=== PATIENT | female | born 1955 | race Caucasian/White ===

== ENCOUNTER 2024-11-18 08:47 | Outpatient (AMB) | payer MEDICARE, OTHER, SELFPAY ==
--- OUTSIDE RECORDS SUMMARY | 2024-11-18 08:59 | XMS_ITS | Clinical Summary ---
Author Organization [facility] ity Address [address] [place] [address] Care Team Providers Care Special Forces Specialist Name Role Phone Salma Becker MD Primary Care Provider [phone] Surgical History Surgery Date Site/Laterality Comments HAND SURGERY PROCEDURE:HAND SURGERY SHOULDER SURGERY PROCEDURE:SHOULDER SURGERY JOINT REPLACEMENT PROCEDURE:JOINT REPLACEMENT Medical History Medical History Date Comments Hypertension DX:Hypertension Hypertension DX:Hypertension Family History Medical History Relation Name Comments Diabetes Father Heart disease Father Relation Name Status Comments Father Social History Tobacco Use Types Packs/Day Years Used Date Smoking Tobacco: Never Smokeless Tobacco: Never Alcohol Use Standard Drinks/Week Comments Yes 2 (1 standard drink = 0.6 oz pur e alcohol) Sex and Gender Information Value Date Recorded Sex Assigned at Female 06/25/2023 11:01 AM EDT Gender Identity Female 06/25/2023 11:01 AM EDT Sexual Orientation Not on file Obstetrics History Plan of Treatment Health Maintenance Due Date Last Done Comments Breast Cancer Screening 1956 DTaP,Tdap,and Td Vaccines (1 - Tdap) 1975 Zoster Vaccines (1 of 2) 2006 Pneumococcal Vaccine: 65+ Ye ars (1 of 1 - PCV) 2021 Colorectal Cancer Screening: Colonoscopy 09/23/2022 Depression Screening 09/23/2022 Falls Risk Assessment 09/23/2022 Hepatitis C Screening 09/23/2022 Osteoporosis Screening (Bone Density Screening) 09/23/2022 Social Influencers of Health Screening 09/23/2022 COVID-19 Vaccine ( - 2023-2 5 season) 2024 Influenza Vaccine (#1) 2024 RSV Immunization Patients 60 + Years Old (1 - 1-dose 75+ series) 2031 HIB Vaccines Aged Out No longer eligi ble based on patient's age to complete this topic HPV Vaccines Aged Out No longer eligi ble based on patient's age to complete this topic Hepatitis A Vaccines Aged Out No long er eligible based on patient's age to complete this topic Hepatitis B Vaccines Aged Out No long er eligible based on patient's age to complete this topic IPV Vaccines Aged Out No longer eligi ble based on patient's age to complete this topic MMR Vaccines Aged Out No longer eligi ble based on patient's age to complete this topic Meningococcal ACWY Vaccine Aged Out N o longer eligible based on patient's age to complete this topic RSV Immunization Patients Un lanie 20 months Aged Out No longer eligible b ased on patient's age to complete this topic Varicella Vaccines Aged Out No longer eligible based on patient's age to complete this topic Care Teams Special Forces Specialist Relationship Specialty Start Date End Date Salma Becker MD [address] [place] [address] PCP - General 04/30/18
--- OUTSIDE RECORDS SUMMARY | 2024-11-18 08:59 | XMS_ITS | Continuity of Care Document ---
Author Name [facility] Organization [facility] Care Team Providers Care Enterer Name Role Phone [facility] Unavailable Unavailable Medications Combined list of outpatient medications from Department of Defense and Veterans Affairs facilities.Medications provided include 1) outpatient medications from the last 15 months, and 2) patient-reported medications. Medication Details Route Status Patient Instructions Prescription Expires Prescription Number Last Dispense Date Ordering Provider Order Date Order Qty Source Benzonatate ([employer]) 100 CAPSULE in 1 BOTTLE Active [id number] 10/18/19 2 4 2023 21 Pharmac y Data Transac tion Service Facilit y BUPROPION HCL (BUPROPION HCL), 100MG, TABLET, ORAL, APOTEX SCARLETT, 100 ea. BOTTLE Active [id number] 4 2023 90 Pharmac y Data Transac tion Service Facilit y BUPROPION HCL (BUPROPION HCL), 100MG, TABLET, ORAL, APOTEX SCARLETT, 100 ea. BOTTLE Active [id number] 4 2023 30 Pharmac y Data Transac tion Service Facilit y BUPROPION HCL (BUPROPION HCL), 100MG, TABLET, ORAL, APOTEX SCARLETT, 100 ea. BOTTLE Active [id number] 4 2023 30 Pharmac y Data Transac tion Service Facilit y BUPROPION HCL (BUPROPION HCL), 100MG, TABLET, ORAL, APOTEX SCARLETT, 100 ea. BOTTLE Active [id number] 4 2023 30 Pharmac y Data Transac tion Service Facilit y BUPROPION HCL (BUPROPION HCL), 100MG, TABLET, ORAL, APOTEX SCARLETT, 100 ea. BOTTLE Active [id number] 4 2023 30 Pharmac y Data Transac tion Service Facilit y Immunizations Combined list of available immunizations from the Department of Defense and Veterans Affairs facilities. Immunization Series Date Given Administered By Site Reaction Lot Number CVX Code Drug Transition Program Manager Status Comments Source COVID-19, mRNA, LNP-S, PF, 30 mcg/0.3 mL dose 2020 [employer] [place] (PFR) Not Given COVID-19, mRNA, LNP-S, PF, 30 mcg/0.3 mL dose DoD Social History Combined list of available smoking, tobacco, and other social history from Department of Defense and Veterans Affairs facilities. Social History Type Response Date Comment [facility] e This section is an empty social history section. DoD
--- OUTSIDE RECORDS SUMMARY | 2024-11-18 08:59 | XMS_ITS ---
Author Name [facility] Organization Unknown Problems Problem Status Onset Date Problem Type Date of Resoluti on Source Tibial plateau fracture, right, closed, initial encounter active EncounterDiagnosisAct CCT
--- OUTSIDE RECORDS SUMMARY | 2024-11-18 08:59 | XMS_ITS | Clinical Summary ---
Author Organization [facility] Address [address] [place] [address] Care Team Providers Care Rate Analyst Name Role Phone Pcp, No Primary Care Provider Unavailabl e Encounters Date Type Department Care Team Description 09/05/2024 8:30 AM EST [facility] [address] [phone] Rodo Plsaencia MD Tibial plateau fracture, right, closed, initial encounter (Primary Dx) 09/05/2024 8:25 AM EST Ancillary Procedure [facility] [address] [address] Rodo Plasencia MD from Last 3 Months Social History Tobacco Use Types Packs/Day Years Used Date Smoking Tobacco: Never Assessed Sex and Gender Information Value Date Recorded Sex Assigned at Not on file Gender Identity Not on file Sexual Orientation Not on file Plan of Treatment Health Maintenance Due Date Last Done Comments Hepatitis C Virus Screening 1956 DTaP/Tdap/Td Vaccines (1 - Tdap) 1975 Mammogram 1996 Colonoscopy 2001 Pneumococcal Vaccines 50+ (1 of 1 - PCV) 2006 Zoster (Shingles) Vaccine (1 of 2) 2006 DXA Bone Density (Females,Ages 65 and older) 2021 Influenza Vaccine 05/15/2024 08/05/2019, , 07/25/2016 COVID-19 Vaccine ( season) 2024 02/05/2022, 08/02/2021, 01/31/2021, Additional history exists RSV Vaccine 60 years and older and Patients (1 - 1-dose 75+ series) 2031 Hepatitis B Vaccines Aged Out No long er eligible based on patient's age to complete this topic Procedures Procedure Name Priority Date/Time Associated Diagnosis Comments XR KNEE 4+ VIEWS-RIGHT Routine 09/05/2024 8:29 AM EST Tibial plateau fracture, right, closed, initial encounter from Last 3 Months Results * XR Knee 4+ views-Right (09/05/2024 8:29 AM EST) Narrative OA - 09/05/2024 8:30 AM EST This exam was performed in office at [facility] and images reviewed by orthopedic provider. ??Any findings are documented within ambulatory encounter note on date of service. Rodo Plasencia MD IMG DIAGNOSTIC IMAGI NG ORDERABLES [facility] from Last 3 Months Care Teams Rate Analyst Relationship Specialty Start Date End Date Pcp, No PCP - General General Medicine 09/03/24
--- NOTE | 2024-11-18 09:07 | A.OFFVIS_ITS ---
Vital Signs 11/18/24 09:08 Height 5 ft 11 in Weight 239 lb BMI 33.3 Intake Visit Reasons: Bilateral knee discomfort Intake Note: Chelo is a 69 year old female who presents with complaints of bilateral knee pains, left greater than right. The patient underwent left total knee replacement surgery approximately 6 years ago. She states that she fell onto both of her knees while visiting her son-in-law in [place] in July of last year. The patient states that she tripped while wearing flip-flops and fell onto both of her knees. The patient states that she suffered a ?fracture? in her right knee at that time. She was treated in a knee immobilizer. She denies any locking or giving way in either of her knees. She denies any fevers or chills. She has taken tramadol in the past which gave her minimal relief. She is not able to tolerate prednisone. She does take diclofenac which gives her mild relief. Allergies penicillin G Allergy (Severe, Verified 11/18/24 09:10) Seizure prednisone Adverse Reaction (Severe, Verified 11/18/24 09:10) high blood pressure Medication List - Last Reconciled 11/18/24 by John Murray MD bupropion HCl 100 mg PO BEDTIME cetirizine 10 mg PO DAILY citalopram mg PO DAILY diclofenac sodium 75 mg PO lisinopril 10 mg PO DAILY omeprazole mg PO DAILY rosuvastatin mg PO DAILY Physical Exam Vital Signs: BMI result Body Mass Index 33.3 Const Other: Well-nourished well-developed very friendly female awake alert and oriented x3 in no acute distress Extrem Other: Bilateral lower extremity examination shows good capillary refill, no skin lesions noted, normal sensation light touch Right knee examination shows a minimal effusion, minimal crepitus with range of motion, tenderness along her medial joint line, positive Radha's test, no instability Left knee examination shows that the surgical incision is well healed, no erythema, full active extension and flexion to 110 degrees, her patella tracks well, mild discomfort with range of motion, no focal tenderness Results Reviewed Results Reviewed: X-rays of the patient's right knee show mild diffuse joint space narrowing, no acute bony abnormalities, no obvious fracture line MRI of the patient's right knee taken previously shows a minimally displaced lateral tibial plateau fracture X-rays of the patient's left knee show a total knee arthroplasty in good position with no signs of loosening, no acute bony abnormalities Assessment & Plan Assessment & Plan (1) Left knee pain: Code(s): M25.562 - Pain in left knee Category: Medical (2) Right knee pain: Code(s): M25.561 - Pain in right knee Category: Medical Plan Ms. Barber presents with bilateral knee pains most likely due to soft tissue and bony contusion as well as a healing right lateral tibial plateau fracture. At this point the patient's left knee discomfort is more bothersome than his her right. Thus, I will arrange for her to have an evaluation by Dr. Marin in our pain management department. The patient may be a candidate for a nerve stimulation procedure. She will follow up with me after that appointments. At this point her right knee discomfort is tolerable to her. We will hold off on getting an MRI. Feel free to call me at any time should questions regarding her orthopedic management arise. I spent 20 minutes in reviewing the patient's records and imaging studies, seeing the patient and documenting in the medical record. Orders: Orders XR knee LT 3V Today M25.562 - Pain in left knee XR knee RT 3V Today M25.561 - Pain in right knee Referrals Pain Management Referral M25.562 - Pain in left knee Coding Level of Care Code Est Pt Level 3 (72678) Complex EM visit Add On G2211 Diagnoses Left knee pain M25.562 Right knee pain M25.561
[2024-11-18 09:08] VITALS: BMI 33.3
== END 2024-11-18 09:27 | disposition home or self-care (01) ==
PROVIDERS: PCP Nurse Practitioner Gerontology; Visit Provider Orthopaedic Surgery
DX: M25.562 Pain in left knee (principal); M25.561 Pain in right knee; Z96.652 Presence of left artificial knee joint
CPT/HCPCS: 99213

== ENCOUNTER → 2024-11-18 08:48 | Outpatient (BNV) | payer MEDICARE, OTHER, SELFPAY | PROVIDERS: Visit Provider Radiology Diagnostic Radiology | DX: M25.561 Pain in right knee (principal); M25.562 Pain in left knee; Z96.652 Presence of left artificial knee joint | CPT/HCPCS: 73562 ==

== ENCOUNTER 2024-11-18 08:54 | Outpatient (REF) | payer MEDICARE, OTHER, SELFPAY ==
--- NOTE | ~2024-11-18 | XR_ITS ---
EXAMINATION: XR KNEE, RIGHT CLINICAL INFORMATION: M25.561 - Pain in right knee COMPARISON: None available. TECHNIQUE: Four views of the right knee. FINDINGS: Joint space narrowing involving the medial and to a lesser extent lateral compartment. Sclerosis of the articular surface in the tibial plateau. No acute cortical disruption or malalignment. No suprapatellar bursa joint effusion. No lytic or blastic lesions. 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 Electronically signed by: Jordan Elizabeth MD 11/18/2024 09:08 AM [facility]OR BASH[facility]
--- NOTE | ~2024-11-18 | XR_ITS ---
EXAMINATION: XR KNEE, LEFT CLINICAL INFORMATION: M25.562 - Pain in left knee COMPARISON: None available. TECHNIQUE: Four views of the left knee. FINDINGS: There is a metallic prosthesis well-seated in the tibial plateau and femoral condyles. Normal alignment. No loosening. No acute cortical disruption. No lytic or blastic lesions. XR/XR knee LT 3V IMPRESSION: Status post total left knee arthroplasty prosthesis placement without acute fracture or dislocation. Electronically signed by: Jordan Elizabeth MD 11/18/2024 09:06 AM [facility]
--- OUTSIDE RECORDS SUMMARY | 2024-11-18 09:07 | XMS_ITS | Continuity of Care Document ---
Author Name [facility] Organization [facility] Care Team Providers Care Special Investigator Name Role Phone [facility] Unavailable Unavailable Medications Combined list of outpatient medications from Department of Defense and Veterans Affairs facilities.Medications provided include 1) outpatient medications from the last 15 months, and 2) patient-reported medications. Medication Details Route Status Patient Instructions Prescription Expires Prescription Number Last Dispense Date Ordering Provider Order Date Order Qty Source Benzonatate ([employer]) 100 CAPSULE in 1 BOTTLE Active [id number] 10/18/19 2 4 2023 21 Pharmac y Data Transac tion Service Facilit y BUPROPION HCL (BUPROPION HCL), 100MG, TABLET, ORAL, APOTEX SCARLETT, 100 ea. BOTTLE Active [id number] 4 2023 90 Pharmac y Data Transac tion Service Facilit y BUPROPION HCL (BUPROPION HCL), 100MG, TABLET, ORAL, APOTEX SCARLETT, 100 ea. BOTTLE Active [id number] 4 2023 30 Pharmac y Data Transac tion Service Facilit y BUPROPION HCL (BUPROPION HCL), 100MG, TABLET, ORAL, APOTEX SCARLETT, 100 ea. BOTTLE Active [id number] 4 2023 30 Pharmac y Data Transac tion Service Facilit y BUPROPION HCL (BUPROPION HCL), 100MG, TABLET, ORAL, APOTEX SCARLETT, 100 ea. BOTTLE Active [id number] 4 2023 30 Pharmac y Data Transac tion Service Facilit y BUPROPION HCL (BUPROPION HCL), 100MG, TABLET, ORAL, APOTEX SCARLETT, 100 ea. BOTTLE Active [id number] 4 2023 30 Pharmac y Data Transac tion Service Facilit y Immunizations Combined list of available immunizations from the Department of Defense and Veterans Affairs facilities. Immunization Series Date Given Administered By Site Reaction Lot Number CVX Code Drug Negative Spotter Status Comments Source COVID-19, mRNA, LNP-S, PF, 30 mcg/0.3 mL dose 2020 [employer] (PFR) Not Given COVID-19, mRNA, LNP-S, PF, 30 mcg/0.3 mL dose DoD Social History Combined list of available smoking, tobacco, and other social history from Department of Defense and Veterans Affairs facilities. Social History Type Response Date Comment [facility] e This section is an empty social history section. DoD
== END 2024-11-18 08:55 | disposition home or self-care (01) ==
LOC: HO.HOSX 08:54
PROVIDERS: Visit Provider Orthopaedic Surgery
DX: M25.562 Pain in left knee (principal); M25.561 Pain in right knee
CPT/HCPCS: 73562; 99212

== ENCOUNTER 2024-11-21 11:35 | Outpatient (AMB) | payer MEDICARE, OTHER, SELFPAY ==
[2024-11-21 11:39] VITALS: BP 139/77; PULSE 92; RESP 16; O2SAT 96; BMI 34.2
--- NOTE | 2024-11-21 11:39 | A.OFFVIS_ITS ---
Vital Signs 11/21/24 11:39 Height 5 ft 11 in Weight 245 lb BMI 34.2 BP 139/77 Blood Pressure Location Lt brachial Position Sitting Respiration 16 Pulse 92 Pulse Source Pulse Oximeter Pulse Oximetry (%) 96 Oxygen Delivery Method Room Air Intake Visit Reasons: Pain in left knee Clay Carman Required: No Allergies penicillin G Allergy (Severe, Verified 11/21/24 11:40) Seizure prednisone Adverse Reaction (Severe, Verified 11/21/24 11:40) high blood pressure Medication List - Last Reconciled 11/21/24 by Basilia Carlin LPN bupropion HCl 100 mg PO BEDTIME cetirizine 10 mg PO DAILY citalopram mg PO DAILY diclofenac sodium 75 mg PO lisinopril 10 mg PO DAILY omeprazole mg PO DAILY rosuvastatin mg PO DAILY HPI HPI Pain in left knee: Details: History of Present Illness The patient is a 69-year-old female presenting with persistent knee pain predominantly in the left side, which began three months ago and worsened post- fall last July. The initial management included nonoperative care for a right knee fracture using a knee immobilizer. Since the fall, the left knee, previously replaced six years ago, has become a primary source of pain, despite appearing structurally stable upon imaging. She has trialed several medications, including tramadol and gabapentin, but with limited to no efficacy. While the highest dose of ibuprofen provides some relief, its use is limited due to potential side effects on renal function and gastrointestinal tract. The pain interferes with her sleep and daily activities, particularly ambulation, necessitating alternative approaches for management such as nerve stimulator placement. Pain Description - Onset and Timing: Pain began three months ago, exacerbated after a fall last July. - Quality and Character: Described as severe and excruciating, rating 10/10 when walking. - Primary Location: Left knee, post-total knee arthroplasty. - Exacerbating Factors: Walking, weather changes, physical movements. - Relieving Factors: Ibuprofen provides temporary relief. - Interference: Affects sleep and daily activities. Physical Exam - Musculoskeletal- Well-healed midline scar on the left knee. Tenderness noted upon palpation of the infrapatellar lateral region. No tenderness in the suprapatellar region. Results - Imaging: Left knee x-rays indicate components in proper positioning, with no evidence of post-surgical complications requiring revision. Pain Management - Affect: Pain is severely impacting daily activities and sleep. - Analgesia: Current medications (tramadol, gabapentin) are ineffective; ibuprofen offers limited relief. - Adverse Effects: Nightmares and discomfort from gabapentin; potential issues with high-dose ibuprofen. - Activities of Daily Living: Pain limits ambulation and ability to perform daily tasks. - Aberrant Drug Related Behaviors: Denied. Physical Exam Vital Signs: Last Vital Signs Pulse 92 11/21/24 11:39 Resp 16 11/21/24 11:39 BP 139/77 11/21/24 11:39 Pulse Ox 96 11/21/24 11:39 Oxygen Delivery Method Room Air 11/21/24 11:39 BMI result Body Mass Index 34.2 Assessment & Plan Assessment & Plan (1) Left knee pain: Code(s): M25.562 - Pain in left knee Category: Medical Plan Plan The treatment strategy involves placement of a temporary saphenous nerve stimulator to address the chronic pain in the left knee following arthroplasty, contingent upon insurance approval. Until the procedure, tramadol will be prescribed as analgesia, with instructions to supplement with acetaminophen. This approach prioritizes non-invasive management, acknowledging the previous inefficacy of other analgesics. All discussed options, risks, and the rationale for this therapy were thoroughly reviewed with the patient. Patient was informed and verbally consented to the use of an ambient scribe for clinic note documentation during this visit. Discussion Notes In our discussion, I explained that the x-rays show a stable left knee prosthesis despite the severe pain reported by the patient. I elaborated on the limitations of imaging in diagnosing potential sources of pain, emphasizing the complexity of knee joint structures. We reviewed nerve stimulator therapy, noting its mechanism of action, temporary 70% success rate, and minor side effect profile, facilitated through a minimal procedure. The patient expressed understanding and consent to commence this treatment following authorization. We also covered medication alternatives for interim relief, addressing the failed efficacy of tramadol and gabapentin previously tried. Patient Instructions - Await a call to schedule the nerve stimulator procedure upon insurance approval. - Take prescribed tramadol for pain, with acetaminophen added three times daily, regardless of pain level. - Avoid using high doses of ibuprofen due to potential adverse effects. - Maintain usual activities as tolerated but be cautious with weight-bearing on the affected knee. - Contact our office if there is a significant change in symptoms or for any clarifications. Medications: New tramadol 50 mg PO BID PRN 60 tabs 0RF pain Coding Level of Care Code New Pt Level 4 (15833) Diagnoses Left knee pain M25.562
--- OUTSIDE RECORDS SUMMARY | 2024-11-21 12:37 | XMS_ITS | Clinical Summary ---
Author Organization [facility] Address [address] [place] [address] Care Team Providers Care Motor Vehicle Light Assembler Name Role Phone Pcp, No Primary Care Provider Unavailabl e Encounters Date Type Department Care Team Description 09/05/2024 8:30 AM EST [facility] [address] [address] Rodo Plasencia MD Tibial plateau fracture, right, closed, initial encounter (Primary Dx) 09/05/2024 8:25 AM EST Ancillary Procedure Orth[facility] [address] [phone] Rodo Plasencia MD from Last 3 Months [...] was performed in office at [facility] and images reviewed by orthopedic provider. ??Any findings are documented within ambulatory encounter note on date of service. Rodo Plasencia MD IMG DIAGNOSTIC IMAGI NG ORDERABLES [facility] from Last 3 Months Care Teams Motor Vehicle Light Assembler Relationship Specialty Start Date End Date Pcp, No PCP - General General Medicine 09/03/24
--- OUTSIDE RECORDS SUMMARY | 2024-11-21 12:37 | XMS_ITS | Continuity of Care Document ---
Author Name [facility] Organization [facility] Care Team Providers Care Salad Chef Name Role Phone [facility] Unavailable Unavailable Medications Combined list of outpatient medications from Department of Defense and Veterans Affairs facilities.Medications provided include 1) outpatient medications from the last 15 months, and 2) patient-reported medications. Medication Details Route Status Patient Instructions Prescription Expires Prescription Number Last Dispense Date Ordering Provider Order Date Order Qty Source Benzonatate ([employer]) 100 CAPSULE in 1 BOTTLE Active [id number] 10/18/19 2 4 2023 21 Pharmac y Data Transac tion Service Facilit y BUPROPION HCL (BUPROPION HCL), 100MG, TABLET, ORAL, APOTEX SCARLETT, 100 ea. BOTTLE Active [id number] 4 2023 90 Pharmac y Data Transac tion Service Facilit y BUPROPION HCL (BUPROPION HCL), 100MG, TABLET, ORAL, APOTEX SCARLETT, 100 ea. BOTTLE Active [id number] 4 2023 30 Pharmac y Data Transac tion Service Facilit y BUPROPION HCL (BUPROPION HCL), 100MG, TABLET, ORAL, APOTEX SCARLETT, 100 ea. BOTTLE Active [id number] 4 2023 30 Pharmac y Data Transac tion Service Facilit y BUPROPION HCL (BUPROPION HCL), 100MG, TABLET, ORAL, APOTEX SCARLETT, 100 ea. BOTTLE Active [id number] 4 2023 30 Pharmac y Data Transac tion Service Facilit y BUPROPION HCL (BUPROPION HCL), 100MG, TABLET, ORAL, APOTEX SCARLETT, 100 ea. BOTTLE Active [id number] 4 2023 30 Pharmac y Data Transac tion Service Facilit y Immunizations Combined list of available immunizations from the Department of Defense and Veterans Affairs facilities. Immunization Series Date Given Administered By Site Reaction Lot Number CVX Code Drug Process Steward Status Comments Source COVID-19, mRNA, LNP-S, PF, 30 mcg/0.3 mL dose 2020 [employer] [place] (PFR) Not Given COVID-19, mRNA, LNP-S, PF, 30 mcg/0.3 mL dose DoD Social History Combined list of available smoking, tobacco, and other social history from Department of Defense and Veterans Affairs facilities. Social History Type Response Date Comment [facility] e This section is an empty social history section. DoD
--- OUTSIDE RECORDS SUMMARY | 2024-11-21 12:37 | XMS_ITS | Clinical Summary ---
Author Organization [facility] Address [address] [place] [address] Care Team Providers Care Team Lead Name Role Phone Salma Becker MD Primary Care Provider + Allergies Active Allergy Reactions Criticality Noted Date Comments Dexamethasone 06/14/2022 face turned red.. ( steroid flush) her blood pressure went up and she felt dizzy with PO steroid Penicillins 05/07/2018 Prednisone 04/25/2021 Medications Medication Sig Dispensed Refills Start Date End Date Status citalopram (CELEXA) 40 MG tablet 0 05/02/2018 Active cyclobenzaprine (FLEXERIL) 5 MG tablet 0 02/27/2018 Active diclofenac (VOLTAREN) 50 MG EC tablet TAKE 1 TABLET BY MOUTH TWICE A DAY WITH FOOD 1 04/29/2018 Active gabapentin (NEURONTIN) 300 MG capsule 0 02/27/2018 Active HYDROcodone-acetam inophen (NORCO) 5-325 MG per tablet Take 1 tablet by mouth 3 (three) times a day as needed. for pain 0 04/29/2018 Active hydrOXYzine (ATARAX) 10 MG tablet Take 10 mg by mouth every night at bedtime. 0 03/13/2018 Active lisinopril (PRINIVIL,ZESTRIL) tablet 10 mg 0 05/02/2018 Active oxyCODONE (ROXICODONE) 5 MG immediate release tablet TAKE 1-2 TABLETS BY MOUTH EVERY 6 HOURS NEEDED FOR PAIN 0 05/03/2018 Active sulfamethoxazole-t rimethoprim (BACTRIM DS) 800-160 MG per tablet Take 1 tab 2 times daily for 7 days 14 tablet 0 07/23/2018 Active warfarin (COUMADIN) 1 MG tablet Take 6 tabs daily or as directed by physician 100 tablet 0 07/25/2018 Active clindamycin (CLEOCIN) 300 MG capsule Take 2 capsules 1 hour prior to dental appointment 10 capsule 3 07/30/2018 Active meloxicam (MOBIC) 15 MG tablet Take 15 mg by mouth daily. 0 04/11/2022 Active pravastatin (PRAVACHOL) tablet 20 mg Take 20 mg by mouth daily. 0 04/11/2022 Active HYDROcodone-acetam inophen (NORCO) 5-325 MG per tablet Take 1 tab every 8 hours as needed for pain 35 tablet 0 06/14/2022 Active Active Problems Problem Noted Date Diagnosed Date Postop check 07/30/2018 Resolved Problems Problem Noted Date Diagnosed Date Resolved Date Left medial tibial plateau fracture 05/08/2018 05/22/2018 Family History Medical History Relation Name Comments [...] on file Sexual Orientation Not on file Job Start Date Occupation Industry Not on file Not on file Not on file Last Filed Vital Signs Vital Sign Reading Time Taken Comments Blood Pressure - - Pulse - - Temperature - - Respiratory Rate - - Oxygen Saturation - - Inhaled Oxygen Concentration - - Weight 90.3 kg (199 lb) 08/25/2019 2:13 PM EST Height 180.3 cm (5' 11 ) 08/25/2019 2:13 PM EST Body Mass Index 27.75 08/25/2019 2:13 PM EST Plan of Treatment Health Maintenance Due Date Last Done Comments Hepatitis C Screening 1955 COVID-19 Vaccine (#1) 1956 Depression Screening 1968 BMI Counseling 1974 Preventative Health Evaluation 1974 DTap / Tdap / Td (1 - Tdap) 1975 Colon Cancer Screening (Colonoscopy) 2001 Breast Cancer Screening (Mammogram) 2006 Shingrix-Zoster Vaccine (1 of 2) 2006 Fall Risk Assessment 2021 Osteoporosis Screening (DEXA Scan) 2021 Pneumococcal Vaccine (1 of 1 - PCV) 2021 Influenza Vaccine (#1) 2024 RSV Adult > 60+ Yrs or Pregn ant (1 - 1-dose 75+ series) 2031 Hepatitis B Vaccines Aged Out No long er eligible based on patient's age to complete this topic RSV Ped < 20 months Aged Out No longe r eligible based on patient's age to complete this topic Care Teams Team Lead Relationship Specialty Start Date End Date Salma Becker MD [address] [place] [address] PCP - General Supervisor Filtration 04/30/18
--- OUTSIDE RECORDS SUMMARY | 2024-11-21 12:37 | XMS_ITS | Clinical Summary ---
Author Organization [facility] Address [address] [place] [address] Care Team Providers Care Tire Finisher Name Role Phone Salma Becker MD Primary Care Provider +1- [phone] Surgical History Surgery Date Site/Laterality Comments HAND [...] age to complete this topic Care Teams Tire Finisher Relationship Specialty Start Date End Date Salma Becker MD [address] [place] [address] PCP - General 04/30/18
== END 2024-11-21 12:16 | disposition home or self-care (01) ==
PROVIDERS: PCP Nurse Practitioner Gerontology; Referring Provider Orthopaedic Surgery; Visit Provider Internal Medicine
DX: M25.562 Pain in left knee (principal)
CPT/HCPCS: 99204

== ENCOUNTER → 2024-11-21 11:35 | Outpatient (BNVA) | payer MEDICARE, OTHER, SELFPAY | PROVIDERS: PCP Nurse Practitioner Gerontology; Referring Provider Orthopaedic Surgery; Visit Provider Internal Medicine | DX: M25.562 Pain in left knee (principal) | CPT/HCPCS: 99202 ==

== ENCOUNTER 2025-02-04 10:55 | Outpatient (AMB) | payer MEDICARE, OTHER, SELFPAY ==
--- NOTE | 2025-02-04 11:09 | A.OFFVIS_ITS ---
Vital Signs 02/04/25 11:10 Height 5 ft 11 in Weight 245 lb BMI 34.2 BP 174/94 H Blood Pressure Location Lt brachial Position Sitting Respiration 16 Pulse 69 Pulse Source Pulse Oximeter Pulse Oximetry (%) 98 Oxygen Delivery Method Room Air Intake Visit Reasons: Denial fu Online Community Manager Required: No Allergies penicillin G Allergy (Severe, Verified 02/04/25 11:20) Seizure prednisone Adverse Reaction (Severe, Verified 02/04/25 11:20) high blood pressure Medication List - Last Reconciled 02/04/25 by Basilia Carlin LPN bupropion HCl 100 mg PO BEDTIME cetirizine 10 mg PO DAILY citalopram mg PO DAILY diclofenac sodium 75 mg PO lisinopril 10 mg PO DAILY omeprazole mg PO DAILY rosuvastatin mg PO DAILY tramadol 50 mg PO BID PRN HPI HPI Denial fu: Details: History of Present Illness The patient is a 69-year-old female presenting with a denial of temporary nerve stimulation. Having undergone a surgical intervention five to six years ago, which yielded significant pain relief, her symptoms have resurfaced for three months. Her experience of severe pain interrupts her sleep and prevents side sleeping. She reports that Tramadol, previously prescribed for her pain, is effective with twice-daily dosing due to the transient relief offered. Insurance denied temporary nerve stimulation, labeling it experimental, yet approved a permanent stimulator provided she undergoes mandatory psychological assessment. During our conversation, the need for her current grief counselor to deliver suitable psychological clearance was discussed, in anticipation of trialing a temporary wire to assess pain relief capabilities. Chances of complications such as infection necessitate pre- and post-operative antibiotic measures in the treatment phases. Due to restrictions, long-term management with Tramadol faces contractual limitations on monthly prescriptions. Pain Description - Onset and Timing: Persistent for 3 additional months after prior relief from past surgery - Quality and Character: Severe pain, interrupts sleep, prevents sleeping on the side - Primary Location: Leg - Exacerbating Factors: Long periods without medication - Relieving Factors: Tramadol provides symptomatic relief, though short-lived - Interference: Pain hinders night sleep, requires temporary relief through medication Physical Exam - Appears afebrile. - Alert and oriented. - Mood and affect appropriate. - Follows and participates in conversation appropriately. - Respiratory effort is unlabored. Results Pain Management - Affect: Pain is causing sleep disruption and difficulty in daily function - Analgesia: Tramadol (50mg twice a day) provides temporary relief, goal for more sustained relief - Adverse Effects: No adverse effects discussed - Activities of Daily Living: Pain prevents adequate rest at night - Aberrant Drug Related Behaviors: No behaviors indicative of misuse Physical Exam Vital Signs: Last Vital Signs Pulse 69 02/04/25 11:10 Resp 16 02/04/25 11:10 BP 174/94 H 02/04/25 11:10 Pulse Ox 98 02/04/25 11:10 Oxygen Delivery Method Room Air 02/04/25 11:10 BMI result Body Mass Index 34.2 Assessment & Plan Assessment & Plan (1) Right knee pain: Code(s): M25.561 - Pain in right knee Category: Medical (2) Left knee pain: Code(s): M25.562 - Pain in left knee Category: Medical (3) Chronic knee pain 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 - Schedule trial insertion of temporary Curonix lead to evaluate pain relief efficacy. - Prescribe antibiotics for post-procedural prophylaxis against infection risks associated with implants. - Recommend Tramadol prescription needs to the patient's primary care physician for continued management. - Reapply for insurance authorization after completing initial protocol requirements. Patient was informed and verbally consented to the use of an ambient scribe for clinic note documentation during this visit. Discussion Notes We discussed the patient's denied temporary nerve stimulation, shifting focus toward completing requirements for a permanent nerve stimulator. I explained the compulsory psychological assessment and alternative arrangements with a counselor if feasible. We explored her trialing of a Curonix device. We reviewed the prophylactic care plan including antibiotics to prevent infections. For prescription continuity of Tramadol, collaboration with her primary physician w as advised due to our program's current limitations. Alternative methods of insurance authorization will follow assessment approvals. Patient Instructions - Proceed with psychological assessment with [employer] or counselor. - Expect contact for trial planning of temporary wire implantation. - Continue current Tramadol use as prescribed. - Contact primary care for additional prescriptions. - Inform of any signs of infection post-procedure quickly. - Expect follow-up communications related to plan progression and next steps. Medications: Refilled tramadol 50 mg PO BID PRN 60 tabs 0RF pain Coding Level of Care Code Est Pt Level 3 (88012) Diagnoses Right knee pain M25.561 Left knee pain M25.562 Chronic knee pain after total replacement of knee joint M25.569; G89.29; Z96.659
[2025-02-04 11:10] VITALS: BP 174/94; PULSE 69; RESP 16; O2SAT 98; BMI 34.2
--- OUTSIDE RECORDS SUMMARY | 2025-02-04 13:08 | XMS_ITS | Clinical Summary ---
Author Organization [facility] Address [address] [place] [address] Care Team Providers Care Rabbit Dresser Name Role Phone Salma Becker MD Primary [...] age to complete this topic Care Teams Rabbit Dresser Relationship Specialty Start Date End Date Salma Becker MD [address] [place] [address] PCP - General Assistant Professor Of History 04/30/18
--- OUTSIDE RECORDS SUMMARY | 2025-02-04 13:08 | XMS_ITS | Clinical Summary ---
Author Organization [facility] Address [address] [place] [address] Care Team Providers Care Sail Repairer Name Role Phone Pcp, No Primary Care Provider Unavailabl e Social History Tobacco Use Types Packs/Day Years Used Date Smoking Tobacco: Never Assessed Comments Unknown Sex and Gender Information Value Date Recorded Sex Assigned at Not on file Legal Sex Female 1:40 PM EST Gender Identity Not on file Sexual Orientation [...] Vaccine 05/15/2024 08/05/2019, , 07/25/2016 COVID-19 Vaccine (2023- season) 2024 02/05/2022, 08/02/2021, 01/31/2021, Additional history exists RSV Vaccine 60 years and older and Patients (1 - 1-dose 75+ series) 2031 Hepatitis B Vaccines Aged Out No long er eligible based on patient's age to complete this topic Insurance [facility] MEDICARE Care Teams Sail Repairer Relationship Specialty Start Date End Date Pcp, No PCP - General General Medicine 09/03/24
--- OUTSIDE RECORDS SUMMARY | 2025-02-04 13:08 | XMS_ITS | Clinical Summary ---
Author Organization [facility] ity Address [address] [place] [address] Care Team Providers Care Scroll Machine Operator Name Role Phone Salma Becker MD Primary Care Provider +1- [phone] Surgical History Surgery Date Site/Laterality Comments HAND [...] drink = 0.6 oz pur e alcohol) Comments Unknown Sex and Gender Information Value Date Recorded Sex Assigned at Female 06/25/2023 11:01 AM EDT Legal Sex Female 1:59 AM EST Gender Identity Female 06/25/2023 11:01 AM EDT Sexual Orientation Not on file Obstetrics History Plan of Treatment Health Maintenance Due Date Last Done Comments Breast Cancer Screening 1955 DTaP,Tdap,and Td Vaccines (1 - Tdap) 1975 Pneumococcal Vaccine: 50+ Ye ars (1 of 1 - PCV) 2006 Zoster Vaccines (1 of 2) 2006 Colorectal Cancer Screening: Colonoscopy 09/23/2022 Depression Screening 09/23/2022 Falls Risk Assessment 09/23/2022 Hepatitis C Screening 09/23/2022 Osteoporosis Screening (Bone Density Screening) 09/23/2022 Social Influencers of Health Screening 09/23/2022 COVID-19 Vaccine ( - 2023-2 5 season) 2024 Influenza Vaccine (Season Ended) 2025 RSV Immunization Adult Patie nts (1 - 1-dose 75+ series) 2031 HIB [...] patient's age to complete this topic Meningococcal B Vaccine Aged Out No l onger eligible based on patient's age to complete this topic RSV Immunization Patients Un lanie 20 months Aged Out No longer eligible b ased on patient's age to complete this topic Varicella Vaccines Aged Out No longer eligible based on patient's age to complete this topic Care Teams Scroll Machine Operator Relationship Specialty Start Date End Date Salma Becker MD [address] [place] [address] PCP - General 04/30/18
--- OUTSIDE RECORDS SUMMARY | 2025-02-04 13:08 | XMS_ITS | Continuity of Care Document ---
Author Name [facility] Organization [facility] Care Team Providers Care Guest Services Lead Name Role Phone [facility] Unavailable Unavailable Medications Combined list of outpatient medications from Department of Defense and Veterans Affairs facilities.Medications provided include 1) outpatient medications from the last 15 months, and 2) patient-reported medications. Medication Details Route Status Patient Instructions Prescription Expires Prescription Number Last Dispense Date Ordering Provider Order Date Order Qty Source BUPROPION HCL (BUPROPION HCL), 100MG, TABLET, ORAL, [employer], 100 ea. BOTTLE Active [id number] 2023 90 Pharmac y Data Transac tion Service Facilit y Immunizations Combined list of available immunizations from the Department of Defense and Veterans Affairs facilities. Immunization Series Date Given Administered By Site Reaction Lot Number CVX Code Drug Medical Billing And Coding Specialist Status Comments Source COVID-19, mRNA, LNP-S, PF, 30 mcg/0.3 mL dose 2020 [email or web address] [place] (PFR) Not Given COVID-19, mRNA, LNP-S, PF, 30 mcg/0.3 mL dose [facility] Social History Combined list of available smoking, tobacco, and other social history from Department of Defense and Veterans Affairs facilities. Social History Type Response Date Comment Sour e This section is an empty social history section. [facility]
== END 2025-02-04 11:37 | disposition home or self-care (01) ==
LOC: HO.PMC 10:56
PROVIDERS: PCP Nurse Practitioner Gerontology; Visit Provider Internal Medicine
DX: M25.561 Pain in right knee (principal); M25.562 Pain in left knee; M25.569 Pain in unspecified knee; G89.29 Other chronic pain; Z96.659 Presence of unspecified artificial knee joint
CPT/HCPCS: 99213

== ENCOUNTER → 2025-02-04 10:55 | Outpatient (BNVA) | payer MEDICARE, OTHER, SELFPAY | PROVIDERS: PCP Nurse Practitioner Gerontology; Visit Provider Internal Medicine | DX: M25.561 Pain in right knee (principal); M25.562 Pain in left knee; G89.29 Other chronic pain; Z96.652 Presence of left artificial knee joint | CPT/HCPCS: 99212 ==

== ENCOUNTER 2025-03-17 08:24 | Outpatient (AMB) | payer MEDICARE, OTHER, SELFPAY ==
[2025-03-17 08:30] VITALS: BMI 34.2
--- NOTE | 2025-03-17 08:30 | A.OFFVIS_ITS ---
Vital Signs 03/17/25 08:30 03/17/25 08:30 Height 5 ft 11 in 5 ft 11 in Weight 245 lb 245 lb BMI 34.2 34.2 Intake Visit Reasons: Left knee pain Intake Note: Chelo is a 69 year old female who presents with complaints of intermittent pain in her left knee. She denies any fevers or chills. She did undergo left total knee replacement surgery 6 years ago. She has been seen by Dr. Marin from our pain management department. A nerve stimulator procedure was discussed. It has not yet been approved by her insurance company. Allergies penicillin G Allergy (Severe, Verified 03/17/25 08:32) Seizure prednisone Adverse Reaction (Severe, Verified 03/17/25 08:32) high blood pressure Medication List - Last Reconciled 03/17/25 by John Murray MD bupropion HCl 100 mg PO BEDTIME cetirizine 10 mg PO DAILY citalopram mg PO DAILY diclofenac sodium 75 mg PO lisinopril 10 mg PO DAILY omeprazole mg PO DAILY rosuvastatin mg PO DAILY tramadol 50 mg PO BID PRN [facility] Surgical History (Updated 03/17/25 @ 08:36 by Kisha Santoro [facility]) History of total left knee replacement Physical Exam Vital Signs: BMI result Body Mass Index 34.2 Const Other: Well-nourished well-developed very friendly female awake alert and oriented x3 in no acute distress Extrem Other: Left knee examination shows that the surgical incision is well healed, no erythema, range motion from -3 degrees to 110 degrees, her patella tracks well Results Reviewed Results Reviewed: X-rays of the patient's left knee taken previously show a total knee arthroplasty in good position with no signs of loosening, no acute bony abnormalities Assessment & Plan Assessment & Plan (1) Left knee pain: Code(s): M25.562 - Pain in left knee Category: Medical Plan Ms. Barber presents with continued left knee pain after undergoing total knee replacement surgery 6 years ago most likely due to scar tissue formation and hypersensitivity. At this point I do not feel that further surgery is indicated. She will follow up with Dr. Marin as scheduled. She will contact me prior to her annual follow-up appointment should her symptoms worsen in any way. I spent 22 minutes in reviewing the patient's records and imaging studies, seekishore ng the patient and documenting in the medical record. Coding Level of Care Code Est Pt Level 3 (73195) Complex EM visit Add On G2211 Diagnoses Left knee pain M25.562
--- OUTSIDE RECORDS SUMMARY | 2025-03-17 08:39 | XMS_ITS | Clinical Summary ---
Author Organization [facility] Address [address] [place] [address] Care Team Providers Care Mosaic Layer Name Role Phone Salma Becker MD Primary [...] of 1 - PCV) 2021 Influenza Vaccine (Season Ended) 2025 RSV Adult > 60+ Yrs or Pregn ant (1 - 1-dose 75+ series) 2031 Hepatitis B Vaccines Aged Out No long er eligible based on patient's age to complete this topic RSV Ped < 20 months Aged Out No longe r eligible based on patient's age to complete this topic Care Teams Mosaic Layer Relationship Specialty Start Date End Date Salma Becker MD [address] [place] [address] PCP - General Labor Relations Or Personnel Negotiator 04/30/18
== END 2025-03-17 09:00 | disposition home or self-care (01) ==
LOC: HO.HOS 08:25
PROVIDERS: Visit Provider Orthopaedic Surgery
DX: M25.562 Pain in left knee (principal)
CPT/HCPCS: 99213; G2211

== ENCOUNTER → 2025-03-17 08:24 | Outpatient (BNVA) | payer MEDICARE, OTHER, SELFPAY | PROVIDERS: Visit Provider Orthopaedic Surgery | DX: M25.562 Pain in left knee (principal) | CPT/HCPCS: 99212 ==

== ENCOUNTER 2025-05-04 10:34 | Outpatient (AMB) | payer MEDICARE, OTHER, SELFPAY ==
--- OUTSIDE RECORDS SUMMARY | 2025-04-22 05:00 | XMS_ITS | Continuity of Care Document ---
Author Organization [facility] Address [address] [place] [address] Phone Care Team Providers Care Sr. Social Media & Mobile Manager Name Role Phone Uriah GU, MIKE, Ray WILDER Unavailable U navailable Procedures Procedure Date Office/Oupt E&M New Pt 30 Mins- CT & [place] Duplex Scan-extrem Veins; Comp- [place] & [place] Advance Directives Directive Yes / No Effective Date File Name Other Directive No 04/22/2025 N/A WARNING:The information contained in this section is historical and is provided for information only and does not constitute a legal document or any assurance that the information is still accurate. Please verify the information with the argueta of the legal document before using it for clinical purposes. Encounters Encounter Description Practice Location Reason(s) For Visit Diagnoses Date Provider Providers Copied on Encounter Office/Oupt E&M New Pt 30 Mins- [place] & [place] [facility], [address] [place] [address] [address], [place], [id number], [place] tel:[phone] R - [place] - [place] Chronic venous hypertension (idiopathic) without complications of bilateral lower extremityRestle ss legs syndromeEssenti al (primary) hypertensionPai n in left legCramp and spasmLocalized edema 5 Uriah GU, MEÑO MCKEON. [address], [facility] [place], [id number] , [place]. tel:[phone] Referring Provider: Kalyani Hickey[address], [address]. tel:[phone] [facility], [address], [place], [id number], [place] tel:[phone] R [facility] - [place] Chronic venous hypertension (idiopathic) with other complications of bilateral lower extremity Uriah GU, RVT, RPVI Ray. [address], [place], [place], [id number] , [place]. tel:[phone] Referring Provider: Kalyani Hikcey[address], [address]. tel:[phone] Family History Family Member Type Diagnosis Age At Onset No Information Payers Payer name Insurance type Covered constitution party ID Authoriza tion(s) [employer] [id number] [facility] [id number] Social History Type Description Quantity Date Captured Comments Alcohol Use Details Unknown Caffeine Use Details Unknown Tobacco Use Status No Information Smoking Status Former Smoker Non-Smoking Tobacco Use Details : No Details Available : No Details Available Sex Female Vital Signs Date / Time: Height Weight BMI Pulse Rate Blood Pressure Temperature Respiratory Rate Body Surface Area Head Circumference Head Circ. Percentile Wt./Suhail. Percentile BMI percentile Pulse Ox Inhaled Ox 107.950 kg (238.00 lbs) 33.3 5 kg/m eter (2) 132/84 mm[Hg] Chief Complaint And Reason For Visit No Information Reason For Referral Reason For Referral No Information Plan Of Treatment Date Type Action Status Goal Tobacco cessation counseling completed Goal Diet education completed Referral Ordered: Weight management: Referral to physician timeframe: 3 Months (related to Body mass index (BMI) 33.0-33.9, adult) ordered Appointment Chelo Gómez BOOKED Appointment Chelo Gómez BOOKED Appointment Chelo Gómez BOOKED Appointment Chelo Gómez BOOKED Appointment Chelo Gómez BOOKED Appointment Chelo Gómez BOOKED History Of Present Illness Encounter Date Complaint History Of Prese nt Illness No Information Functional Status Date Functional Assessmen t No Information Instructions Date Instruction Additional Infor priscilla Pre and post instruc tions reviewed and provided Related to Chronic venous hypertension (idiopathic) without complications of bilateral lower extremity Patient education booklet given Related to Chronic venous hypertension (idiopathic) without complications of bilateral lower extremity Lifestyle education Related to B papito mass index (BMI) 33.0-33.9, adult Giving Encouragement to exercise Related to Body mass index (BMI) 33.0-33.9, adult Diet education Related to Body mass index (BMI) 33.0-33.9, adult Assessments Type Assessment Date No Information Patient Care Teams Name Effective Dates (start - stop) Status Members No Information
--- NOTE | 2025-05-04 10:49 | A.OFFVIS_ITS ---
Vital Signs 05/04/25 10:53 Height 5 ft 11 in Weight 245 lb BMI 34.2 Intake Visit Reasons: OV-B/L knee pain Intake Note: Chelo is a 69 year old female who presents with complaints of bilateral knee pains, left greater than right. The patient underwent left total knee replacement surgery approximately 6 years ago. She states that she fell onto both of her knees while visiting her son-in-law in [place] in July of last year. The patient states that she tripped while wearing flip-flops and fell onto both of her knees. The patient states that she suffered a ?fracture? in her right knee at that time. She was treated in a knee immobilizer. She denies any locking or giving way in either of her knees. She denies any fevers or chills. She has taken tramadol in the past which gave her minimal relief. She is not able to tolerate prednisone. She does take diclofenac which gives her mild relief. The patient was seen in our pain management department. A nerve st imulator procedure was discussed but it was not covered by her insurance. The patient for reports intermittent low back discomfort. She did undergo low back surgery in the past. That surgery was performed in order to treat sciatica pain in her left leg. The patient states that the current pain in her left knee is somewhat different than her prior sciatica pain. She has not had a recent back MRI. Allergies penicillin G Allergy (Severe, Verified 05/04/25 11:01) Seizure prednisone Adverse Reaction (Severe, Verified 05/04/25 11:01) high blood pressure Medication List - Last Reconciled 05/04/25 by John Murray MD bupropion HCl 100 mg PO BEDTIME cetirizine 10 mg PO DAILY citalopram mg PO DAILY diclofenac sodium 75 mg PO lisinopril 10 mg PO DAILY losartan 50 mg PO DAILY omeprazole mg PO DAILY rosuvastatin mg PO DAILY tramadol 50 mg PO BID PRN [facility] Surgical History (Updated 03/17/25 @ 08:36 by JANEEN Thompson) History of total left knee replacement Physical Exam Vital Signs: BMI result Body Mass Index 34.2 Const Other: Well-nourished well-developed very friendly female awake alert and oriented x3 in no acute distress Extrem Other: Left knee examination shows that the surgical incision is well healed, no erythema, no swelling, full active extension and flexion to 120 degrees, her patella tracks well Results Reviewed Results Reviewed: X-rays of the patient's left knee taken previously show a total knee arthroplasty in good position with no signs of loosening, no acute bony abnormalities Assessment & Plan Assessment & Plan (1) Left knee pain: Code(s): M25.562 - Pain in left knee Category: Medical Plan Ms. Lynn presents with continued left leg and left knee pain after undergoing left total knee replacement surgery of unclear etiology. At this point I do not see anything mechanically wrong with her total knee arthroplasty. The patient does not have any sign of infection. The patient's symptoms could be coming from a recurrent back problem. I did recommend that the patient get an MRI of her lumbar spine for further evaluation. She wishes to think things over. I did recommend that the patient seek a 2nd opinion at a tertiary care center, such as [facility] or [facility], if her knee pain continues. Feel free to call me at any time should questions regarding her orthopedic management arise. I spent 20 minutes in reviewing the patient's records and imaging studies, seeing the patient and documenting in the medical record. Coding Level of Care Code Est Pt Level 3 (21863) Complex EM visit Add On G2211 Diagnoses Left knee pain M25.562
[2025-05-04 10:53] VITALS: BMI 34.2
--- OUTSIDE RECORDS SUMMARY | 2025-05-04 11:35 | XMS_ITS | Continuity of Care Document ---
Author Name [facility] Organization [facility] Care Team Providers Care Food Beverage Attendant Name Role Phone [facility] Unavailable Unavailable Medications Combined list of outpatient medications from Department of Defense and Veterans Affairs facilities.Medications provided include 1) outpatient medications from the last 15 months, and 2) patient-reported medications. Medication Details Route Status Patient Instructions Prescription Expires Prescription Number Last Dispense Date Ordering Provider Order Date Order Qty Source BUPROPION HCL (BUPROPION HCL), 100MG, TABLET, ORAL, Salorix, 100 ea. BOTTLE Active [id number] 2023 90 Pharmac y Data Transac tion Service Facilit y Immunizations Combined list of available immunizations from the Department of Defense and Veterans Affairs facilities. Immunization Series Date Given Administered By Site Reaction Lot Number CVX Code Drug Dietitian Status Comments Source COVID-19, mRNA, LNP-S, PF, 30 mcg/0.3 mL dose 2020 [employer] (PFR) Not Given COVID-19, mRNA, LNP-S, PF, 30 mcg/0.3 mL dose [facility] Social History Combined list of available smoking, tobacco, and other social history from Department of Defense and Veterans Affairs facilities. Social History Type Response Date Comment Sour e This section is an empty social history section. [facility]
--- OUTSIDE RECORDS SUMMARY | 2025-05-04 11:36 | XMS_ITS | Clinical Summary ---
Author Organization [facility] Address [address] [place] [address] Care Team Providers Care Management Intern Name Role Phone Salma Becker MD Primary [...] 1 - PCV) 2021 Influenza Vaccine (#1) 2025 RSV Adult > 60+ Yrs or Pregn ant (1 - 1-dose 75+ series) 2031 Hepatitis B Vaccines Aged Out No long er eligible based on patient's age to complete this topic RSV Ped < 20 months Aged Out No longe r eligible based on patient's age to complete this topic Care Teams Management Intern Relationship Specialty Start Date End Date Salma Becker MD [address] [place] [address] PCP - General Reservoir Engineering Consultant 04/30/18
--- OUTSIDE RECORDS SUMMARY | 2025-05-04 11:36 | XMS_ITS ---
Author Name [facility] Unknown Problems Problem Status Onset Date Problem Type Date of Resoluti on Source Tibial plateau fracture, right, closed, initial encounter active EncounterDiagnosisAct CCT Encounters Encounter Type Encounter Reason Primary Diagnosis Location Date Ambulatory [email or web address] 09/05/2024 Ambulatory Pain in right knee Pain in right knee [email or web address] 09/05/2024 Ambulatory [facility] [place] 04/09/2023 Ambulatory [facility] 04/09/2023 Ambulatory [facility] [place] 04/09/2023 Care Team Organization Name Specialty Phone Email Start Date End Da te [facility] 09/07/2024 12/31/2024 [facility] NO PCP Primary Care 09/05/2024 [facility] 08/26/2024
--- OUTSIDE RECORDS SUMMARY | 2025-05-04 11:36 | XMS_ITS | Clinical Summary ---
Author Organization [facility] Address [address] [place] [address] Care Team Providers Care Furniture Mechanic Name Role Phone Pcp, No Primary Care [...] Bone Density (Females,Ages 65 and older) 2021 COVID-19 Vaccine (2023- season) 2024 02/05/2022, 08/02/2021, 01/31/2021, Additional history exists Influenza Vaccine 05/15/2025 08/05/2019, , 07/25/2016 RSV Vaccine 60 years and older and Patients (1 - 1-dose 75+ series) 2031 Hepatitis B Vaccines Aged Out No long er eligible based on patient's age to complete this topic Insurance [facility] MED[facility] Care Teams Furniture Mechanic Relationship Specialty Start Date End Date Pcp, No PCP - General General Medicine 09/03/24
--- OUTSIDE RECORDS SUMMARY | 2025-05-04 11:36 | XMS_ITS | Clinical Summary ---
Author Organization [facility] Address [address] [place] [id number] Phone Care Team Providers Care Molecular Technologist Name Role Phone Kalyani Prieto SPORTS MEDICINE TRAINER Primary Care Provider [phone] Allergies Active Allergy Reactions Criticality Noted Date Comments Penicillins 08/29/2016 Medications lisinopril (PRINIVIL,ZESTR IL) 10 MG tablet Take 10 mg by mouth daily. Active oxyCODONE 5 MG immediate release tablet Take 5 mg by mouth every 4 (four) hours as needed for moderate pain. {PARTIAL FILL:51639} Active diclofenac sodium (VOLTAREN) 50 MG EC tabletIndicatio ns:Degenerative tear of acetabular labrum of right hip,Right hip flexor tightness TAKE 1 TABLET BY MOUTH 2 TIMES A DAY. 60 tablet 2 09/14/2017 Active Active Problems No known active problems Social History Tobacco Use Types Packs/Day Years Used Date Smoking Tobacco: Never Education Answer Date Recorded Are you interested in more education? Not on naseem e 02/09/2023 Are you concerned about learning? Not on file 02/09/2023 No 02/09/2023 No 02/09/2023 Digital Access Answer Date Recorded No 03/12/2023 No 03/12/2023 No 03/12/2023 Reliable internet access at home? Not on file 03/12/2023 Device with a working camera? Not on file Comments Unknown Sex and Gender Information Value Date Recorded Sex Assigned at Not on file Legal Sex Female 10:27 AM EDT Gender Identity Not on file Sexual Orientation Not on file Last Filed Vital Signs Vital Sign Reading Time Taken Comments Blood Pressure 165/102 11/09/2016 11:00 AM EST Pulse 97 11/09/2016 11:00 AM EST Temperature - - Respiratory Rate - - Oxygen Saturation - - Inhaled Oxygen Concentration - - Weight 102.1 kg (225 lb) 08/29/2016 9:39 AM EST Height 180.3 cm (5' 11 ) 08/29/2016 9:39 AM EST Body Mass Index 31.38 08/29/2016 9:39 AM EST Plan of Treatment Health Maintenance Due Date Last Done Comments Adult Td,Tdap Booster 1956 CREATININE LEVEL 1956 LIPID PANEL 1956 POTASSIUM LEVEL 1956 DEPRESSION SCREENING 1968 HEPATITIS C SCREENING 1974 MAMMOGRAM 1996 COLOGUARD 2001 COLONOSCOPY 2001 COLORECTAL CANCER SCREENING 2001 FIT TEST 2001 FOBT 2001 SIGMOIDOSCOPY 2001 VIRTUAL COLONOSCOPY 2001 PNEUMOCOCCAL VACCINES (50+ years) (1 of 1 - PCV) 2006 ZOSTER VACCINES (1 of 2) 2006 OSTEOPOROSIS SCREENING INITI AL (ONE-TIME) 2021 COVID-19 VACCINE (3 - 2023-2 5 season) 2024 01/31/2021, 01/10/2021 RSV VACCINE (1 - 1-dose 75+ series) 2031 SMOKING STATUS SCREENING (On ce After 26 Yrs) Completed 11/09/2016 HEPATITIS A VACCINES Aged Out No long er eligible based on patient's age to complete this topic HIB VACCINES Aged Out No longer eligi ble based on patient's age to complete this topic MENINGOCOCCAL VACCINES (ACWY) Aged Out No longer eligible based on patient's age to complete this topic MENINGOCOCCAL VACCINES (B) Aged Out N o longer eligible based on patient's age to complete this topic Medical Devices Not on file Insurance [facility] OUT [employer] STATE PPO Care Teams Molecular Technologist Relationship Specialty Start Date End Date Kalyani Prieto NP [address] [place] [address] PCP - General 08/29/16 Additional Source Comments The information contained in this document represents components of the legal health record. It is not the complete legal health record.[facility]
--- OUTSIDE RECORDS SUMMARY | 2025-05-04 11:37 | XMS_ITS | Clinical Summary ---
Author Organization [facility] it Address [address] [place] [address] Care Team Providers Care Correction Officer Reformatory Name Role Phone Salma Becker MD Primary Care Provider [phone] Surgical History Surgery Date Site/Laterality Comments HAND [...] 2) 2006 Colorectal Cancer Screening: Colonoscopy 09/23/2022 Falls Risk Assessment 09/23/2022 Hepatitis C Screening 09/23/2022 Osteoporosis Screening (Bone Density Screening) 09/23/2022 Social Influencers of Health Screening 09/23/2022 COVID-19 Vaccine ( - 2023-2 5 season) 2024 Depression Screening 10/15/2024 Influenza Vaccine (#1) 2025 RSV Immunization Adult Patie nts (1 [...] age to complete this topic Care Teams Correction Officer Reformatory Relationship Specialty Start Date End Date Salma Becker MD [address] [place] [address] PCP - General 04/30/18
== END 2025-05-04 11:26 | disposition home or self-care (01) ==
LOC: HO.HOS 10:34
PROVIDERS: PCP Nurse Practitioner Gerontology; Visit Provider Orthopaedic Surgery
DX: M25.562 Pain in left knee (principal)
CPT/HCPCS: 99213; G2211

== ENCOUNTER → 2025-05-04 10:34 | Outpatient (BNVA) | payer MEDICARE, OTHER, SELFPAY | PROVIDERS: PCP Nurse Practitioner Gerontology; Visit Provider Orthopaedic Surgery | DX: M25.561 Pain in right knee (principal); M25.562 Pain in left knee | CPT/HCPCS: 99212 ==